=== PATIENT | male | born 1950 | race Caucasian/White ===

== ENCOUNTER 2023-02-13 21:01 | Observation (INO) ==
--- NOTE | 2023-02-13 21:31 | Emergency Department Note ---
History of Present Illness General Chief complaint: Stroke/CVA Symptoms Stated complaint: MEMORY LOSS, CONFUSION Time Seen by Provider: 02/13/23 21:14 Source: patient and family (Daughter and at bedside) History of Present Illness Provider complaint: Confusion 73-year-old male presents to the emergency department for confusion and strokelike symptoms. reports that acutely at 1930 tonight the patient became very confused. She states he did not know where he was and kept repeating the same question. She states he did not remember what he ate or what he did earlier in the day. No difficulty walking. No changes in his voice according to the . reports that the patient has a history of transient global amnesia 7 years ago and presented in similar manner. Home Medications Medication Instructions Recorded Confirmed Type lisinopril 5 mg tablet 5 mg PO DAILY 07/19/18 02/13/23 History metoprolol succinate 25 mg 25 mg PO DAILY 07/19/18 02/13/23 History tablet,extended release 24 hr (Toprol XL) rosuvastatin 20 mg tablet 10 mg PO DAILY 02/13/23 02/13/23 History Allergies Allergy/AdvReac Type Severity Reaction Status Date / Time No Known Allergies Allergy Unknown ` Unverified 02/13/23 22:13 Past Med/Surg History Medical History (Updated 02/13/23 @ 23:37 by Alberto Espinoza MD) Arthritis of left hip Stroke HTN (hypertension) Surgical History [place] teeth extracted Family History Other Family history non-contributory Social History Smoking Status: Never smoker Preferred Language: Mohawk marital status: Current Living Situation: Spouse current occupational status: retired Feels Safe at Home: Yes Physical Exam Vital Signs Vital Signs - 24 hr 02/13/23 21:05 02/13/23 21:24 02/13/23 21:24 Temperature 36.5 C Temperature Source Temporal Artery Scan Pulse Rate 115 H 108 H 112 H Pulse Rate from SpO2 Sensor Respiratory Rate 18 21 Respiratory Depth Blood Pressure 191/105 H 173/122 H Blood Pressure Mean 133 139 Pulse Oximetry 97 Oxygen Delivery Method Room Air Sepsis Recent Fever Within 48 Hours No Sepsis New/Unexplained Change in Mental Status N/A Sepsis Action Taken by Nursing No Action Required 02/13/23 21:30 02/13/23 21:37 02/13/23 21:38 Temperature Temperature Source Pulse Rate 115 H Pulse Rate from SpO2 Sensor 115 H Respiratory Rate 17 Respiratory Depth Normal Blood Pressure 166/112 H 166/112 H Blood Pressure Mean 130 126 Pulse Oximetry 98 Oxygen Delivery Method Sepsis Recent Fever Within 48 Hours Sepsis New/Unexplained Change in Mental Status Sepsis Action Taken by Nursing 02/13/23 21:38 02/13/23 21:40 02/13/23 22:00 Temperature Temperature Source Pulse Rate 114 H 117 H 119 H Pulse Rate from SpO2 Sensor 114 H 117 H Respiratory Rate 15 17 36 H Respiratory Depth Blood Pressure 181/120 H 199/121 H Blood Pressure Mean 140 147 Pulse Oximetry 98 99 Oxygen Delivery Method Sepsis Recent Fever Within 48 Hours Sepsis New/Unexplained Change in Mental Status Sepsis Action Taken by Nursing 02/13/23 23:10 Temperature Temperature Source Pulse Rate 109 H Pulse Rate from SpO2 Sensor 109 H Respiratory Rate 14 Respiratory Depth Blood Pressure 178/117 H Blood Pressure Mean 137 Pulse Oximetry 96 Oxygen Delivery Method Room Air Sepsis Recent Fever Within 48 Hours Sepsis New/Unexplained Change in Mental Status Sepsis Action Taken by Nursing Physical Exam HENT: Exam performed. -Head: Normocephalic and atraumatic. -Right Ear: External ear normal. No mastoid erythema -Left Ear: External ear normal. No mastoid erythema -Mouth/Throat: The oropharynx is clear and moist. No trismus in the jaw. No dental abscesses or uvula swelling. No oropharyngeal exudate or tonsillar abscesses. EYES: Conjunctivae and EOM are normal. Pupils are equal, round, and reactive to light. Right eye exhibits no discharge. Left eye exhibits no discharge. No scleral icterus. Funduscopic exam showed no AV nicking or papilledema bilaterally. NECK: Normal range of motion. Neck supple. No JVD present. No spinous process tenderness present. No rigidity. No tracheal deviation and normal range of motion present. CV: Normal rate, regular rhythm, normal heart sounds and intact distal pulses. There is no peripheral edema. Palpable radial pulses bue. PULM/CHEST: Effort normal and breath sounds normal. No respiratory distress. No stridor. She has no wheezes. She has no rales. MUSC/SKEL: Normal range of motion. There is no peripheral edema, tenderness or deformity. NEURO: NIHSS 2 (9:1, 10:1) Course Course 2113: The patient was evaluated in room A1. A complete history and physical exam was performed Code stroke was called from triage and patient taken to CT. 2134: CT of the head viewed by me shows no ICH patient was taken back to CT for CT angio as part of stroke protocol as they were not placed from the triage order set. 2144: Spoke with Dr. Erasmo Lind teleneurology will evaluate the patient. 2149: Formal CT of the head negative as well as CT angios of the head and neck negative. Dr. Zimmerman aware. 2254: Spoke with Dr. Erasmo Lind telestroke. She recommends no TNKase. She states that the patient's symptoms could be due to transient global amnesia versus seizure versus hypertensive encephalopathy. She recommends aspirin 81 mg daily, MRI of the brain, EEG, she recommends no seizure medications be given tonight. She recommends gradually lowering the patient's blood pressure to a systolic blood pressure in the 160s. Labetalol 10 mg ordered for the patient. [facility] Status post labetalol 10 mg IV push patient's blood pressure is 162/104. Administered Medications Discontinued Medications Aspirin (Aspirin Chew 324 Mg) 81 mg PO NOW STA Stop: 02/13/23 23:01 Last Admin: 02/13/23 23:11 Dose: 81 mg Documented By: VIMAL Ioversol (Optiray 320 125ml) 118 ml IV ONCE ONE Stop: 02/13/23 21:33 Last Admin: 02/13/23 21:32 Dose: 118 ml Documented By: KARYN Labetalol HCl (Labetalol Hcl Iv 5 Mg/Ml 20ml) 10 mg IV NOW STA Stop: 02/13/23 23:01 Last Admin: 02/13/23 23:10 Dose: 10 mg Documented By: VIMAL Co-signed By: MICHELLE Critical Care Time Critical Care Time: Yes Total Critical Care Time: 36 I have personally spent greater than 36 minutes of critical care time in the direct management of this patient. This includes bedside care, interpretation of diagnostic studies, and testing, discussion with consultants, patient, and family members, and other required patient management activities. This 36 minutes is in excess of all separately billable procedures. Medical Decision Making Laboratory Data Attestation: I reviewed the patient's lab results. 02/13/23 21:22 02/13/23 21:22 Lab Results 02/13/23 02/13/23 02/13/23 Range/Units 21:22 21:23 21:26 WBC 5.09 (4.8-10.8) K/ul RBC 5.09 (4.70-6.10) M/uL Hgb 15.1 (14.0-18.0) g/dl POC Hgb 14.6 (14.0-18.0) g/dl Hct 43.8 (42.0-52.0) % POC Hct 43 (42-52) % MCV 86.1 (80.0-100.0) fL MCH 29.7 (25.0-34.0) pg MCHC 34.5 (32.0-36.0) g/dL RDW Std Deviation 36.2 L (36.4-46.3) fL RDW Coeff of Antonella 11.6 (11.5-14.5) % Plt Count 223 (130-400) K/uL MPV 9.0 L (9.4-12.4) fL PT 10.3 (9.0-12.0) Seconds INR 0.9 (0.9-1.1) APTT 25 (21-31) Seconds PTT Ratio 0.9 POC Sodium 142 (135-144) mmol/L Sodium 139 (136-145) mmol/L POC Potassium 3.5 (3.3-5.0) mmol/L Potassium 3.5 (3.5-5.1) mmol/L POC Chloride 102 (101-112) mmol/L Chloride 104 (98-107) mmol/L Carbon Dioxide 29 (21-32) mmol/L POC Total CO2 26 (24-31) mmol/L Anion Gap 6 (3-11) POC Anion Gap 20.0 (16-25) mmol/L POC BUN 14 (7-18) mg/dl BUN 15 (6-23) mg/dl Creatinine 0.93 (0.6-1.4) mg/dl POC Creatinine 1.0 (0.6-1.3) mg/dl Est Cr Clr Drug Dosing 68.1 ml/min Est GFR ( Amer) 95.4 ml/min Est GFR (Non-Af Amer) 82.3 ml/min BUN/Creatinine Ratio 16.1 (10-20) Glucose 140 H (70-99(Fasting)) mg/dl POC Glucose 127 H (70-99) mg/dl POC Glucose (other) 144 H (70-99) mg/dl Calcium 9.4 (8.6-10.3) mg/dl POC Ioniz Calcium Jere 1.08 L (1.12-1.32) mmol/l Magnesium 2.0 (1.7-2.4) mg/dl Total Bilirubin 0.3 (0.2-1.0) mg/dl AST 23 (13-39) U/L ALT 22 (7-52) U/L Alkaline Phosphatase 78 (34-104) U/L Total Protein 8.0 (6.0-8.3) gm/dl Albumin 4.4 (3.4-5.0) gm/dl Globulin 3.6 (2.5-4.0) gm/dl Albumin/Globulin Ratio 1.2 (0.9-2) Urine Color Urine Appearance (Clear) Urine pH (4.5-7.5) Ur Specific [place] (1.000-1.030) Urine Protein (Negative) Urine Glucose (UA) (Negative) Urine Ketones (Negative) Urine Blood (Negative) Urine Nitrite (Negative) Urine Bilirubin (Negative) Urine Urobilinogen (Negative) Ur Leukocyte Esterase (Negative) Ethyl Alcohol mg/dL < 10.0 (<10.0) mg/dl 02/13/23 Range/Units 22:12 WBC (4.8-10.8) K/ul RBC (4.70-6.10) M/uL Hgb (14.0-18.0) g/dl POC Hgb (14.0-18.0) g/dl Hct (42.0-52.0) % POC Hct (42-52) % MCV (80.0-100.0) fL MCH (25.0-34.0) pg MCHC (32.0-36.0) g/dL RDW Std Deviation (36.4-46.3) fL RDW Coeff of Antonella (11.5-14.5) % Plt Count (130-400) K/uL MPV (9.4-12.4) fL PT (9.0-12.0) Seconds INR (0.9-1.1) APTT (21-31) Seconds PTT Ratio POC Sodium (135-144) mmol/L Sodium (136-145) mmol/L POC Potassium (3.3-5.0) mmol/L Potassium (3.5-5.1) mmol/L POC Chloride (101-112) mmol/L Chloride (98-107) mmol/L Carbon Dioxide (21-32) mmol/L POC Total CO2 (24-31) mmol/L Anion Gap (3-11) POC Anion Gap (16-25) mmol/L POC BUN (7-18) mg/dl BUN (6-23) mg/dl Creatinine (0.6-1.4) mg/dl POC Creatinine (0.6-1.3) mg/dl Est Cr Clr Drug Dosing ml/min Est GFR ( Amer) ml/min Est GFR (Non-Af Amer) ml/min BUN/Creatinine Ratio (10-20) Glucose (70-99(Fasting)) mg/dl POC Glucose (70-99) mg/dl POC Glucose (other) (70-99) mg/dl Calcium (8.6-10.3) mg/dl POC Ioniz Calcium Jere (1.12-1.32) mmol/l Magnesium (1.7-2.4) mg/dl Total Bilirubin (0.2-1.0) mg/dl AST (13-39) U/L ALT (7-52) U/L Alkaline Phosphatase (34-104) U/L Total Protein (6.0-8.3) gm/dl Albumin (3.4-5.0) gm/dl Globulin (2.5-4.0) gm/dl Albumin/Globulin Ratio (0.9-2) Urine Color Yellow Urine Appearance Clear (Clear) Urine pH 7.0 (4.5-7.5) Ur Specific [place] 1.010 (1.000-1.030) Urine Protein Negative (Negative) Urine Glucose (UA) Negative (Negative) Urine Ketones Negative (Negative) Urine Blood Negative (Negative) Urine Nitrite Negative (Negative) Urine Bilirubin Negative (Negative) Urine Urobilinogen Negative (Negative) Ur Leukocyte Esterase Negative (Negative) Ethyl Alcohol mg/dL (<10.0) mg/dl Imaging Data My Impression: CT head no ICH Radiologist's Impression: Head CT 02/13/23 21:11 CR Exam(s): CT HEAD Without Contrast EXAM: CT Head Without Intravenous Contrast CLINICAL HISTORY: Reason for exam: Neuro deficit, acute, stroke suspected. TECHNIQUE: Axial computed tomography images of the head/brain without intravenous contrast. CTDI is 37.22 mGy and DLP is 547.75 mGy-cm. Automated exposure control was utilized for the study. A dose lowering technique was utilized adhering to the principles of ALARA. COMPARISON: 07/19/2018. FINDINGS: Brain: No acute stroke. No hemorrhage. No abnormal extra-axial fluid collection. No significant white matter disease. Ventricles: No hydrocephalus. No midline shift. Bones/joints: Unremarkable. No acute fracture. Soft tissues: Unremarkable. Sinuses: Unremarkable as visualized. No acute sinusitis. IMPRESSION: No acute abnormality. Communications: Call Doctor Stroke Electronically signed by: Keaton Alarcon M.D. 02/13/23 21:35 PM Head CTA 02/13/23 21:15 CR Exam(s): CTA HEAD With Contrast IV Amt: 118ML OPTIRAY 320 EXAM: CT Angiography Head With Intravenous Contrast CLINICAL HISTORY: Reason for exam: stroke alert. TECHNIQUE: Axial computed tomographic angiography images of the head with intravenous contrast. CTDI is 31 mGy and DLP is 468.69 mGy-cm. Automated exposure control was utilized for the study. A dose lowering technique was utilized adhering to the principles of ALARA. MIP reconstructed images were created and reviewed. CONTRAST: Patient received 118ML OPTIRAY 320 of IV contrast COMPARISON: CT head without contrast, 02/13/23 FINDINGS: Right internal carotid artery: No acute findings. Intracranial segment is patent with no significant stenosis. No aneurysm. Right anterior cerebral artery: Unremarkable. No occlusion or significant stenosis. No aneurysm. Right middle cerebral artery: Unremarkable. No occlusion or significant stenosis. No aneurysm. Right posterior cerebral artery: Unremarkable. No occlusion or significant stenosis. No aneurysm. Right vertebral artery: Unremarkable as visualized. Left internal carotid artery: No acute findings. Intracranial segment is patent with no significant stenosis. No aneurysm. Left anterior cerebral artery: Unremarkable. No occlusion or significant stenosis. No aneurysm. Left middle cerebral artery: Unremarkable. No occlusion or significant stenosis. No aneurysm. Left posterior cerebral artery: Unremarkable. No occlusion or significant stenosis. No aneurysm. Left vertebral artery: Unremarkable as visualized. Basilar artery: Unremarkable. No occlusion or significant stenosis. No aneurysm. IMPRESSION: Patent intracranial circulation. Communications: Call Doctor Stroke Electronically signed by: Willam Barba M.D. 02/13/23 21:47 PM Neck CTA 02/13/23 21:15 CR Exam(s): CTA NECK With Contrast IV Amt: 118ml optiray 320 EXAM: CT Angiography Neck With Intravenous Contrast CLINICAL HISTORY: Reason for exam: stroke alert. TECHNIQUE: Routine carotid CT angiography protocol was performed with intravenous contrast. NASCET criteria using the distal ICAs for comparison were used for evaluation of stenoses. CTDI is 31 mGy and DLP is 468.69 mGy-cm. Automated exposure control was utilized for the study. A dose lowering technique was utilized adhering to the principles of ALARA. MIP reconstructed images were created and reviewed. CONTRAST: Patient received 118ml optiray 320 of IV contrast COMPARISON: None. FINDINGS: VASCULATURE: Right common carotid artery: Unremarkable. No occlusion or significant stenosis. No dissection. Right internal carotid artery: Unremarkable. Extracranial segment is patent with no occlusion or significant stenosis. No dissection. Right external carotid artery: Unremarkable. No occlusion. Right vertebral artery: Unremarkable. No occlusion or significant stenosis. No dissection. Left common carotid artery: Unremarkable. No occlusion or significant stenosis. No dissection. Left internal carotid artery: Unremarkable. Extracranial segment is patent with no occlusion or significant stenosis. No dissection. Left external carotid artery: Unremarkable. No occlusion. Left vertebral artery: Unremarkable. No occlusion or significant stenosis. No dissection. Aorta: Conventional aortic arch branch anatomy. NECK: Bones/joints: Unremarkable. No acute fracture. Soft tissues: Unremarkable. Thyroid: Subcentimeter thyroid nodules. No follow-up indicated due to small size. Lung apices: Clear lung terrell. CAROTID STENOSIS REFERENCE USING NASCET CRITERIA: % ICA stenosis = (1 - narrowest ICA diameter/diameter of distal cervical ICA) x 100. Mild - <50% stenosis. Moderate - 50-69% stenosis. Severe - 70-94% stenosis. Near occlusion - 95-99% stenosis. Occluded - 100% stenosis. IMPRESSION: No dissection, hemodynamically significant stenosis, or occlusion. Communications: Call Doctor Stroke Electronically signed by: Willam Barba M.D. 02/13/23 21:48 PM ECG Data Attestation: I personally reviewed and interpreted this ECG as follows: Rate (beats per minute): 117 Rhythm: + sinus tachycardia ECG Intervals/blocks: + Normal QRS, + Normal IN and + Normal QT-c ECG ST segments: + Normal ST segments MDM Narrative 2113: The patient was evaluated in room A1. A complete history and physical exam was performed Code stroke was called from triage and patient taken to CT. 2134: CT of the head viewed by me shows no ICH patient was taken back to CT for CT angio as part of stroke protocol as they were not placed from the triage order set. 2144: Spoke with Dr. Erasmo Lind teleneurology will evaluate the patient. 2149: Formal CT of the head negative as well as CT angios of the head and neck negative. Dr. Zimmerman aware. 2255: Spoke with Dr. Erasmo Lind telestroke. She recommends no TNKase. She states that the patient's symptoms could be due to transient global amnesia versus seizure versus hypertensive encephalopathy. She recommends aspirin 81 mg daily, MRI of the brain, EEG, she recommends no seizure medications be given tonight. She recommends gradually lowering the patient's blood pressure to a systolic blood pressure in the 160s. Labetalol 10 mg ordered for the patient. Patient will be admitted to the [facility] hospitalist team. 2335: Status post labetalol 10 mg IV push patient's blood pressure is 162/104. Impression & Plan Stroke-like symptoms, Encephalopathy, hypertensive Discharge Plan Visit Data Chief Complaint: Stroke/CVA Symptoms Stated Complaint: MEMORY LOSS, CONFUSION ED Provider: Alberto Espinoza Discharge Problem: Stroke-like symptoms, Encephalopathy, hypertensive Patient Disposition: Admitted As Inpatient Forms Stand Alone Forms: My [facility] [employer] Prescriptions Prescriptions: No Action lisinopril 5 mg tablet 5 mg PO DAILY metoprolol succinate [Toprol XL] 25 mg tablet extended release 24 hr 25 mg PO DAILY rosuvastatin 20 mg tablet 10 mg PO DAILY Referrals Referrals: Kingsley Kraft DO [Primary Care Provider] -
[2023-02-13] MEDS ORDERED: OPTIRAY 320 125ml IV ONE (21:32)
--- NOTE | 2023-02-13 21:36 | CT Scan Report ---
Exam(s): CT HEAD Without Contrast EXAM: CT Head Without Intravenous Contrast CLINICAL HISTORY: Reason for exam: Neuro deficit, acute, stroke suspected. TECHNIQUE: Axial computed tomography images of the head/brain without intravenous contrast. CTDI is 37.22 mGy and DLP is 547.75 mGy-cm. Automated exposure control was utilized for the study. A dose lowering technique was utilized adhering to the principles of ALARA. COMPARISON: 07/19/2018. FINDINGS: Brain: No acute stroke. No hemorrhage. No abnormal extra-axial fluid collection. No significant white matter disease. Ventricles: No hydrocephalus. No midline shift. Bones/joints: Unremarkable. No acute fracture. Soft tissues: Unremarkable. Sinuses: Unremarkable as visualized. No acute sinusitis. IMPRESSION: No acute abnormality. Communications: Call Doctor Stroke Electronically signed by: Keaton Alarcon M.D. 02/13/23 21:35 PM
[2023-02-13 21:38] LABS: iSTAT Hemoglobin 14.6 g/dl (14.0-18.0); iSTAT Ionized Calcium 1.08 mmol/l (1.12-1.32); iSTAT Potassium 3.5 mmol/L (3.3-5.0)
[2023-02-13 21:43] LABS: INR 0.9 (0.9-1.1); Partial Thromboplastin Ratio 0.9; Partial Thromboplastin Time 25 Seconds (21-31); Prothrombin Time 10.3 Seconds (9.0-12.0)
--- NOTE | 2023-02-13 21:48 | CT Scan Report ---
Exam(s): CTA HEAD With Contrast IV Amt: 118ML OPTIRAY 320 EXAM: CT Angiography Head With Intravenous Contrast CLINICAL HISTORY: Reason for exam: stroke alert. TECHNIQUE: Axial computed tomographic angiography images of the head with intravenous contrast. CTDI is 31 mGy and DLP is 468.69 mGy-cm. Automated exposure control was utilized for the study. A dose lowering technique was utilized adhering to the principles of ALARA. MIP reconstructed images were created and reviewed. CONTRAST: Patient received 118ML OPTIRAY 320 of IV contrast COMPARISON: CT head without contrast, 02/13/23 FINDINGS: Right internal carotid artery: No acute findings. Intracranial segment is patent with no significant stenosis. No aneurysm. Right anterior cerebral artery: Unremarkable. No occlusion or significant stenosis. No aneurysm. Right middle cerebral artery: Unremarkable. No occlusion or significant stenosis. No aneurysm. Right posterior cerebral artery: Unremarkable. No occlusion or significant stenosis. No aneurysm. Right vertebral artery: Unremarkable as visualized. Left internal carotid artery: No acute findings. Intracranial segment is patent with no significant stenosis. No aneurysm. Left anterior cerebral artery: Unremarkable. No occlusion or significant stenosis. No aneurysm. Left middle cerebral artery: Unremarkable. No occlusion or significant stenosis. No aneurysm. Left posterior cerebral artery: Unremarkable. No occlusion or significant stenosis. No aneurysm. Left vertebral artery: Unremarkable as visualized. Basilar artery: Unremarkable. No occlusion or significant stenosis. No aneurysm. IMPRESSION: Patent intracranial circulation. Communications: Call Doctor Stroke Electronically signed by: Willam Barba M.D. 02/13/23 21:47 PM
--- NOTE | 2023-02-13 21:49 | CT Scan Report ---
Exam(s): CTA NECK With Contrast IV Amt: 118ml optiray 320 EXAM: CT Angiography Neck With Intravenous Contrast CLINICAL HISTORY: Reason for exam: stroke alert. TECHNIQUE: Routine carotid CT angiography protocol was performed with intravenous contrast. NASCET criteria using the distal ICAs for comparison were used for evaluation of stenoses. CTDI is 31 mGy and DLP is 468.69 mGy-cm. Automated exposure control was utilized for the study. A dose lowering technique was utilized adhering to the principles of ALARA. MIP reconstructed images were created and reviewed. CONTRAST: Patient received 118ml optiray 320 of IV contrast COMPARISON: None. FINDINGS: VASCULATURE: Right common carotid artery: Unremarkable. No occlusion or significant stenosis. No dissection. Right internal carotid artery: Unremarkable. Extracranial segment is patent with no occlusion or significant stenosis. No dissection. Right external carotid artery: Unremarkable. No occlusion. Right vertebral artery: Unremarkable. No occlusion or significant stenosis. No dissection. Left common carotid artery: Unremarkable. No occlusion or significant stenosis. No dissection. Left internal carotid artery: Unremarkable. Extracranial segment is patent with no occlusion or significant stenosis. No dissection. Left external carotid artery: Unremarkable. No occlusion. Left vertebral artery: Unremarkable. No occlusion or significant stenosis. No dissection. Aorta: Conventional aortic arch branch anatomy. NECK: Bones/joints: Unremarkable. No acute fracture. Soft tissues: Unremarkable. Thyroid: Subcentimeter thyroid nodules. No follow-up indicated due to small size. Lung apices: Clear lung terrell. CAROTID STENOSIS REFERENCE USING NASCET CRITERIA: % ICA stenosis = (1 - narrowest ICA diameter/diameter of distal cervical ICA) x 100. Mild - <50% stenosis. Moderate - 50-69% stenosis. Severe - 70-94% stenosis. Near occlusion - 95-99% stenosis. Occluded - 100% stenosis. IMPRESSION: No dissection, hemodynamically significant stenosis, or occlusion. Communications: Call Doctor Stroke Electronically signed by: Willam Barba M.D. 02/13/23 21:48 PM
[2023-02-13 21:51] LABS: Albumin Globulin Ratio 1.2 (0.9-2); Albumin Level 4.4 gm/dl (3.4-5.0); BUN Creatinine Ratio 16.1 (10-20); Bilirubin,Total 0.3 mg/dl (0.2-1.0); Calcium 9.4 mg/dl (8.6-10.3); Creatinine Clr Calc Pharmacy 68.1 ml/min; Est GFR (African American) 95.4 ml/min; Est GFR (Non-African American) 82.3 ml/min; Globulin 3.6 gm/dl (2.5-4.0); Potassium 3.5 mmol/L (3.5-5.1)
[2023-02-13 22:03] LABS: Hematocrit (blood only) 43.8 % (42.0-52.0); Hemoglobin 15.1 g/dl (14.0-18.0); Mean Corpuscular Hemoglobin 29.7 pg (25.0-34.0); Mean Corpuscular Hgb Conc 34.5 g/dL (32.0-36.0); Mean Corpuscular Volume 86.1 fL (80.0-100.0); Platelet Count 223 K/uL (130-400); RDW Coefficient of Variation 11.6 % (11.5-14.5); RDW Standard Deviation 36.2 fL (36.4-46.3); Red Blood Count 5.09 M/uL (4.70-6.10); White Blood Count 5.09 K/ul (4.8-10.8)
[2023-02-13 22:33] LABS: Appearance Urine Clear (Clear); Bilirubin Urine Negative (Negative); Blood Urine Negative (Negative); Color Urine Yellow; Glucose Urine UA Negative (Negative); Ketones Urine Negative (Negative); Leukocyte Esterase Urine Negative (Negative); Nitrite Urine Negative (Negative); Protein Urine Negative (Negative); Urobilinogen Urine Negative (Negative)
[2023-02-13] MEDS ORDERED: LABETALOL HCL IV 5 MG/ML 20ML IV STA (23:00)
[2023-02-13] MEDS ORDERED: ASPIRIN CHEW 324 MG PO STA (23:00)
[2023-02-13 23:55] LABS: Chol HDL Ratio 3.1 (0-5)
[2023-02-14 00:16] LABS: Thyroid Stimulating Hormone 2.972 uIu/ml (0.300-4.500)
--- NOTE | 2023-02-14 00:40 | History & Physical Report ---
Date of Service February 14, 2023 Assessment & Plan (1) Stroke-like symptoms: Plan: 73-year-old male with past med history significant for hyperlipidemia, hypertension, GERD, chronic bilateral low back pain, presents with strokelike symptoms. Around 7:30 PM patient seemed lost his memory, was asking same questions and was brought in and stroke alert was called. Initial workup with CT head CTA head and neck are unremarkable. And patient currently alert and a wake and oriented. He does not remember coming to the hospital. states 7 years ago he had a similar episode of transient global amnesia at the time it lasted for 24 hours. [place] tele stroke neurology recommended EEG, MRI. Currently resting comfortably and hemodynamic stable. Denies any headache. No blurred visions or double vision. No earache. No runny nose. Having lingering cough. No difficulty swallowing. No chest pain. No shortness of breath. No abdominal pain. Normal bowel movements. Seems micturating a lot today. Denies any burning micturition. Ambulating okay to the bathroom in the ER. Strokelike symptoms Possible transient global amnesia Possible hypertensive encephalopathy CT head, CTA head and neck unremarkable Will do MRI brain, EEG Follow TSH levels. IV thiamine Neurochecks Telemetry monitoring Neuroconsult in a.m. Hypertension Was elevated on presentation Continue home lisinopril and metoprolol succinate IV labetalol as needed Hyperlipidemia On statin Follow lipid profile DVT prophylaxis SCDs for now Disposition Telemetry Full code History of Present Illness Chief Complaint: Strokelike symptoms Primary Care Provider: Kingsley Kraft DO 73-year-old male with past med history significant for hyperlipidemia, hypertension, GERD, chronic bilateral low back pain, presents with strokelike symptoms. Around 7:30 PM patient seemed lost his memory, was asking same questions and was brought in and stroke alert was called. Initial workup with CT head CTA head and neck are unremarkable. And patient currently alert and awake and oriented. He does not remember coming to the hospital. states 7 years ago he had a similar episode of transient global amnesia at the time it lasted for 24 hours. [place] tele stroke neurology recommended EEG, MRI. Currently resting comfortably and hemodynamic stable. Denies any headache. No blurred visions or double vision. No earache. No runny nose. Having lingering cough. No difficulty swallowing. No chest pain. No shortness of breath. No abdominal pain. Normal bowel movements. Seems micturating a lot today. Denies any burning micturition. Ambulating okay to the bathroom in the ER. Past medical history. As mentioned above Past surgical history. [place] tooth removal. Social history. . No smoking. Alcohol 2 beers nightly. No drug use. Family history. Father had prostate cancer. Heart disorder. Hypertension. Mother had diabetes. Hypertension. Brother had hypertension. Brother had CAD s/p stenting Allergies Allergy/AdvReac Type Severity Reaction Status Date / Time No Known Allergies Allergy Unknown ` Unverified 02/13/23 22:13 Home Medications Medication Instructions Recorded Confirmed Type lisinopril 5 mg tablet 5 mg PO DAILY 07/19/18 02/13/23 History metoprolol succinate 25 mg 25 mg PO DAILY 07/19/18 02/13/23 History tablet,extended release 24 hr (Toprol XL) rosuvastatin 20 mg tablet 10 mg PO DAILY 02/13/23 02/13/23 History Past Med/Surg History Medical History (Updated 02/13/23 @ 23:37 by Alberto Espinoza MD) Arthritis of left hip Stroke HTN (hypertension) Surgical History [place] teeth extracted Family History Other Family history non-contributory Social History Smoking Status: Never smoker Hx Alcohol Use: Yes Hx Substance Use: No Preferred Language: [place] Communication Ability: Effective 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 ENT- oropharynx clear Neck- supple, no JVD. Lungs- clear to auscultation no wheezing or crackles. Heart- regular rhythm; no murmur, no gallop. Abdomen- normal bowel sounds, soft, nontender, no distension. Extremities- no pretibial edema, no erythema seen. Neuro- alert, oriented x 3; PERRL, EOMI; no facial palsy; no dysarthria; motor 5/5 bilaterally;coordination of movements normal, no pronator drift,sensations intact, position sense intact. Skin- warm & dry Results & Data Results & Data Vital Signs (Past 12 Hours) Vital Signs Temp Pulse Pulse Resp BP BP Pulse Ox 02/14/23 00:17 90 16 145/86 H 97 02/13/23 23:35 97 02/13/23 23:35 02/13/23 23:31 92 H 162/104 H 02/13/23 23:10 109 H 14 178/117 H 96 02/13/23 22:00 119 H 36 H 199/121 H 02/13/23 21:40 117 H 17 181/120 H 99 02/13/23 21:38 114 H 15 98 02/13/23 21:38 166/112 H 02/13/23 21:37 115 H 17 166/112 H 98 02/13/23 21:24 112 H 21 173/122 H 02/13/23 21:24 108 H 02/13/23 21:05 36.5 C 115 H 18 191/105 H 97 O2 Del Method 02/14/23 00:17 02/13/23 23:35 Room Air 02/13/23 23:35 Room Air 02/13/23 23:31 02/13/23 23:10 Room Air 02/13/23 22:00 02/13/23 21:40 02/13/23 21:38 02/13/23 21:38 02/13/23 21:37 02/13/23 21:24 02/13/23 21:24 02/13/23 21:05 Room Air Diagnostic Findings Laboratory Results WBC 5.09 K/ul (4.8-10.8) 02/13/23 21: RBC 5.09 M/uL (4.70-6.10) 02/13/23 21: Hgb 15.1 g/dl (14.0-18.0) 02/13/23 21: POC Hgb 14.6 g/dl (14.0-18.0) 02/13/23 21: Hct 43.8 % (42.0-52.0) 02/13/23 21:22 POC Hct 43 % (42-52) 02/13/23 21: MCV 86.1 fL (80.0-100.0) 02/13/23 21:22 MCH 29.7 pg (25.0-34.0) 02/13/23 21:22 MCHC 34.5 g/dL (32.0-36.0) 02/13/23 21:22 RDW Std Deviation 36.2 fL (36.4-46.3) L 02/13/23 21: RDW Coeff of Antonella 11.6 % (11.5-14.5) 02/13/23 21:22 Plt Count 223 K/uL (130-400) 02/13/23 21:22 MPV 9.0 fL (9.4-12.4) L 02/13/23 21:22 PT 10.3 Seconds (9.0-12.0) 02/13/23 21:22 INR 0.9 (0.9-1.1) 02/13/23 21: APTT 25 Seconds (21-31) 02/13/23 21:22 PTT Ratio 0.9 02/13/23 21:22 POC Sodium 142 mmol/L (135-144) 02/13/23 21:26 Sodium 139 mmol/L (136-145) 02/13/23 21:22 POC Potassium 3.5 mmol/L (3.3-5.0) 02/13/23 21:26 Potassium 3.5 mmol/L (3.5-5.1) 02/13/23 21:22 POC Chloride 102 mmol/L (101-112) 02/13/23 21:26 Chloride 104 mmol/L (98-107) 02/13/23 21:22 Carbon Dioxide 29 mmol/L (21-32) 02/13/23 21:22 POC Total CO2 26 mmol/L (24-31) 02/13/23 21:26 Anion Gap 6 (3-11) 02/13/23 21:22 POC Anion Gap 20.0 mmol/L (16-25) 02/13/23 21:26 POC BUN 14 mg/dl (7-18) 02/13/23 21:26 BUN 15 mg/dl (6-23) 02/13/23 21:22 Creatinine 0.93 mg/dl (0.6-1.4) 02/13/23 21:22 POC Creatinine 1.0 mg/dl (0.6-1.3) 02/13/23 21:26 Est Cr Clr Drug Dosing 68.1 ml/min 02/13/23 21:22 Est GFR ( Amer) 95.4 ml/min 02/13/23 21:22 Est GFR (Non-Af Amer) 82.3 ml/min 02/13/23 21:22 BUN/Creatinine Ratio 16.1 (10-20) 02/13/23 21:22 Glucose 140 mg/dl (70-99(Fasting)) H 02/13/23 21:22 POC Glucose 127 mg/dl (70-99) H 02/13/23 21:23 POC Glucose (other) 144 mg/dl (70-99) H 02/13/23 21:26 Calcium 9.4 mg/dl (8.6-10.3) 02/13/23 21:22 POC Ioniz Calcium Jere 1.08 mmol/l (1.12-1.32) L 02/13/23 21:26 Magnesium 2.0 mg/dl (1.7-2.4) 02/13/23 21:22 Total Bilirubin 0.3 mg/dl (0.2-1.0) 02/13/23 21:22 AST 23 U/L (13-39) 02/13/23 21:22 ALT 22 U/L (7-52) 02/13/23 21:22 Alkaline Phosphatase 78 U/L (34-104) 02/13/23 21:22 Total Protein 8.0 gm/dl (6.0-8.3) 02/13/23 21:22 Albumin 4.4 gm/dl (3.4-5.0) 02/13/23 21:22 Globulin 3.6 gm/dl (2.5-4.0) 02/13/23 21:22 Albumin/Globulin Ratio 1.2 (0.9-2) 02/13/23 21:22 Triglycerides 160 mg/dl (0-150) H 02/13/23 21:22 Cholesterol 145 mg/dl (0-200) 02/13/23 21:22 LDL Cholesterol, Calc 66 mg/dl 02/13/23 21:22 VLDL Cholesterol, Calc 32 mg/dl (0-30) H 02/13/23 21:22 HDL Cholesterol 47 mg/dl 02/13/23 21:22 Cholesterol/HDL Ratio 3.1 (0-5) 02/13/23 21:22 TSH 2.972 uIu/ml (0.300-4.500) 02/13/23 21:22 Urine Color Yellow 02/13/23 22:12 Urine Appearance Clear (Clear) 02/13/23 22:12 Urine pH 7.0 (4.5-7.5) 02/13/23 22:12 Ur Specific [place] 1.010 (1.000-1.030) 02/13/23 22:12 Urine Protein Negative (Negative) 02/13/23 22:12 Urine Glucose (UA) Negative (Negative) 02/13/23 22:12 Urine Ketones Negative (Negative) 02/13/23 22:12 Urine Blood Negative (Negative) 02/13/23 22:12 Urine Nitrite Negative (Negative) 02/13/23 22:12 Urine Bilirubin Negative (Negative) 02/13/23 22:12 Urine Urobilinogen Negative (Negative) 02/13/23 22:12 Ur Leukocyte Esterase Negative (Negative) 02/13/23 22:12 Ethyl Alcohol mg/dL < 10.0 mg/dl (<10.0) 02/13/23 21:[address] 02/13/23 21:11 CR Exam(s): CT HEAD Without Contrast EXAM: CT Head Without Intravenous Contrast CLINICAL HISTORY: Reason for exam: Neuro deficit, acute, stroke suspected. TECHNIQUE: Axial computed tomography images of the head/brain without intravenous contrast. CTDI is 37.22 mGy and DLP is 547.75 mGy-cm. Automated exposure control was utilized for the study. A dose lowering technique was utilized adhering to the principles of ALARA. COMPARISON: 07/19/2018. FINDINGS: Brain: No acute stroke. No hemorrhage. No abnormal extra-axial fluid collection. No significant white matter disease. Ventricles: No hydrocephalus. No midline shift. Bones/joints: Unremarkable. No acute fracture. Soft tissues: Unremarkable. Sinuses: Unremarkable as visualized. No acute sinusitis. IMPRESSION: No acute abnormality. Communications: Call Doctor Stroke Electronically signed by: Keaton Alarcon M.D. 02/13/23 21:35 PM Head CTA 02/13/23 21:15 CR Exam(s): CTA HEAD With Contrast IV Amt: 118ML OPTIRAY 320 EXAM: CT Angiography Head With Intravenous Contrast CLINICAL HISTORY: Reason for exam: stroke alert. TECHNIQUE: Axial computed tomographic angiography images of the head with intravenous contrast. CTDI is 31 mGy and DLP is 468.69 mGy-cm. Automated exposure control was utilized for the study. A dose lowering technique was utilized adhering to the principles of ALARA. MIP reconstructed images were created and reviewed. CONTRAST: Patient received 118ML OPTIRAY 320 of IV contrast COMPARISON: CT head without contrast, 02/13/23 FINDINGS: Right internal carotid artery: No acute findings. Intracranial segment is patent with no significant stenosis. No aneurysm. Right anterior cerebral artery: Unremarkable. No occlusion or significant stenosis. No aneurysm. Right middle cerebral artery: Unremarkable. No occlusion or significant stenosis. No aneurysm. Right posterior cerebral artery: Unremarkable. No occlusion or significant stenosis. No aneurysm. Right vertebral artery: Unremarkable as visualized. Left internal carotid artery: No acute findings. Intracranial segment is patent with no significant stenosis. No aneurysm. Left anterior cerebral artery: Unremarkable. No occlusion or significant stenosis. No aneurysm. Left middle cerebral artery: Unremarkable. No occlusion or significant stenosis. No aneurysm. Left posterior cerebral artery: Unremarkable. No occlusion or significant stenosis. No aneurysm. Left vertebral artery: Unremarkable as visualized. Basilar artery: Unremarkable. No occlusion or significant stenosis. No aneurysm. IMPRESSION: Patent intracranial circulation. Communications: Call Doctor Stroke Electronically signed by: Willam Barba M.D. 02/13/23 21:47 PM Neck CTA 02/13/23 21:15 CR Exam(s): CTA NECK With Contrast IV Amt: 118ml optiray 320 EXAM: CT Angiography Neck With Intravenous Contrast CLINICAL HISTORY: Reason for exam: stroke alert. TECHNIQUE: Routine carotid CT angiography protocol was performed with intravenous contrast. NASCET criteria using the distal ICAs for comparison were used for evaluation of stenoses. CTDI is 31 mGy and DLP is 468.69 mGy-cm. Automated exposure control was utilized for the study. A dose lowering technique was utilized adhering to the principles of ALARA. MIP reconstructed images were created and reviewed. CONTRAST: Patient received 118ml optiray 320 of IV contrast COMPARISON: None. FINDINGS: VASCULATURE: Right common carotid artery: Unremarkable. No occlusion or significant stenosis. No dissection. Right internal carotid artery: Unremarkable. Extracranial segment is patent with no occlusion or significant stenosis. No dissection. Right external carotid artery: Unremarkable. No occlusion. Right vertebral artery: Unremarkable. No occlusion or significant stenosis. No dissection. Left common carotid artery: Unremarkable. No occlusion or significant stenosis. No dissection. Left internal carotid artery: Unremarkable. Extracranial segment is patent with no occlusion or significant stenosis. No dissection. Left external carotid artery: Unremarkable. No occlusion. Left vertebral artery: Unremarkable. No occlusion or significant stenosis. No dissection. Aorta: Conventional aortic arch branch anatomy. NECK: Bones/joints: Unremarkable. No acute fracture. Soft tissues: Unremarkable. Thyroid: Subcentimeter thyroid nodules. No follow-up indicated due to small size. Lung apices: Clear lung terrell. CAROTID STENOSIS REFERENCE USING NASCET CRITERIA: % ICA stenosis = (1 - narrowest ICA diameter/diameter of distal cervical ICA) x 100. Mild - <50% stenosis. Moderate - 50-69% stenosis. Severe - 70-94% stenosis. Near occlusion - 95-99% stenosis. Occluded - 100% stenosis. IMPRESSION: No dissection, hemodynamically significant stenosis, or occlusion. Communications: Call Doctor Stroke Electronically signed by: Willam Barba M.D. 02/13/23 21:48 PM ECG Additional Comments: EEG. Sinus tachycardia rate of 117. No acute ST changes seen. Code Status & VTE Plan VTE Prophylaxis Plan VTE Prophylaxis will be ordered: Yes
[2023-02-14] MEDS ORDERED: LABETALOL HCL IV 5 MG/ML 20ML IV PRN (02:12)
[2023-02-14] MEDS ORDERED: SODIUM CHLORIDE 0.9% 1,000 ML IV SCH (02:12)
[2023-02-14] MEDS ORDERED: NITROGLYCERIN SL 0.4 MG/TAB TAB SL PRN (02:12)
[2023-02-14] MEDS ORDERED: PHARMACIST DISCHARGE MED REC CONSULT PRN (02:12)
[2023-02-14] MEDS ORDERED: ACETAMINOPHEN 325 MG TAB PO PRN (02:12)
[2023-02-14] MEDS ORDERED: THIAMINE HCL 500 MG in SODIUM CHLORIDE 0.9% 50 ML IV STA (02:18)
[2023-02-14] MEDS ORDERED: GADOBUTROL 65ML VIAL IV ONE (04:42)
[2023-02-14 05:58] LABS: Basophils # (auto) 0.02 K/uL (0.00-0.20); Basophils % (auto) 0.3 %; Eosinophils # (auto) 0.02 K/uL (0.00-0.50); Eosinophils % (auto) 0.3 %; Hematocrit (blood only) 41.4 % (42.0-52.0); Hemoglobin 14.2 g/dl (14.0-18.0); Immature Granulocytes # (auto) 0.01 K/uL (0.01-0.20); Immature Granulocytes % (auto) 0.2 %; Lymphocytes % (auto) 10.6 %; Mean Corpuscular Hemoglobin 29.6 pg (25.0-34.0); Mean Corpuscular Hgb Conc 34.3 g/dL (32.0-36.0); Mean Corpuscular Volume 86.3 fL (80.0-100.0); Mean Platelet Volume 8.7 fL (9.4-12.4); Monocytes % (auto) 6.1 %; Neutrophils # (auto) 5.43 K/uL (1.40-6.50); Neutrophils % (auto) 82.5 %; Platelet Count 215 K/uL (130-400); RDW Coefficient of Variation 11.8 % (11.5-14.5); RDW Standard Deviation 37.1 fL (36.4-46.3); White Blood Count 6.58 K/ul (4.8-10.8)
[2023-02-14 06:14] LABS: BUN Creatinine Ratio 14.8 (10-20); Calcium 9.1 mg/dl (8.6-10.3); Chol HDL Ratio 2.6 (0-5); Creatinine Clr Calc Pharmacy 78.2 ml/min; Est GFR (African American) 103.6 ml/min; Est GFR (Non-African American) 89.4 ml/min; Potassium 4.5 mmol/L (3.5-5.1)
[2023-02-14 06:28] LABS: Thyroid Stimulating Hormone 1.482 uIu/ml (0.300-4.500)
--- NOTE | 2023-02-14 07:04 | Magnetic Resonance Report ---
MR brain wo/w con HISTORY: 73 years-old Male stroke like symptoms acute strokelike symptoms COMPARISON: Head CT February 13, 2023, brain MRI 05/15/2015 TECHNIQUE: Multiplanar multisequence MRI of the brain was obtained both with and without the use of I V contrast. FINDINGS: No restricted diffusion to suggest acute or subacute infarct. Midline structures are unremarkable. Pa rtially empty sella. Degenerative changes of the imaged cervical spine. There is no acute intracrania l hemorrhage, midline shift, abnormal extra-axial collection, hydrocephalus or intra-axial mass. No p athologic blooming artifact on the T2*series. Involutional changes with a few punctate foci of T2/FLAIR prolongation, likely of no clinical signifi cance. The cerebral venous sinuses and major arterial flow voids appear patent. Skull, orbits and sof t tissues are unremarkable. Right greater than left mastoid effusions. Mild mucosal thickening of the left maxillary sinus. No abnormal enhancement. IMPRESSION: 1. No acute intracranial abnormality. 2. No acute or subacute infarct. 3. No abnormal enhancement. ACT 112: Negative or not required by law. The above report was generated using voice recognition software. It may contain grammatical, syntax o r spelling errors. Electronically signed by: Aly Phelan M.D. 02/14/2023 7:02 AM
--- NOTE | 2023-02-14 07:22 | XRay Report ---
XR chest 1V portable HISTORY: 73 years-old Male stroke alert acute strokelike symptoms COMPARISON: Chest CT 07/19/2018 TECHNIQUE: AP view of the chest FINDINGS: Cardiomediastinal and hilar silhouettes are unchanged. Mild chronic interstitial coarsening with mild bibasilar atelectasis. No pneumothorax, pleural effusion or overt pulmonary edema. Degenerative singh ges of the shoulders and spine. IMPRESSION: No acute process. ACT 112: Negative or not required by law. The above report was generated using voice recognition software. It may contain grammatical, syntax o r spelling errors. Electronically signed by: Aly Phelan M.D. 02/14/2023 7:21 AM
[2023-02-14 07:40] LABS: Estimated Average Glucose 111 mg/dl; Hemoglobin A1C 5.5 % (4.5-5.6)
[2023-02-14] MEDS ORDERED: lisinopril 5 MG TAB PO SCH (09:00)
[2023-02-14] MEDS ORDERED: ASPIRIN 81 MG ECTAB PO SCH (09:00)
[2023-02-14] MEDS ORDERED: METOPROLOL SUCC 25MG EXT REL TAB PO SCH (09:00)
[2023-02-14] MEDS ORDERED: ROSUVASTATIN CALCIUM 10 MG TAB PO SCH (09:00)
--- NOTE | 2023-02-14 11:12 | Neurology Consultation ---
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 While rare, recurrent TGA does occur. Alternatively, a hypertensive etiology is reasonable to consider. MRI brain is unremarkable. No loss of consciousness to suggest seizure though EEG was recommended by telestroke yesterday. Would not otherwise change his medication based on this event beyond working with his PCP outpatient to ensure BP control. -- Await EEG -- PCP follow-up, neurology follow-up in 4-6 weeks -- No change in medications -- Can be discharged from our perspective after EEG Telehealth Consultation Telehealth Information Telehealth Information: I performed this visit using a real-time telehealth connection between my location and the patients location ([facility]). After connecting through interactive tele-video, patient was identified by name and date of and/or wristband check.Patient (or authorized healthcare policy services representative) was informed that this was a telemedicine visit and it was being conducted confidentially over secure lines. My office door was closed and no one else was present in the room with me.Patient (or authorized healthcare policy services representative) provided consent to proceed with the visit, expressed an understanding of privacy and security of the telemedicine visit, and gave pe rmission to have a hospital policy services representative in the room in order to assist with the visit and to conduct portions of the visit, as needed. I informed the patient (or authorized healthcare policy services representative) that I reviewed their record and presented the opportunity for them to ask any questions regarding the visit today. The patient agreed to participate. History of Present Illness Reason for Consultation: Confusion Requesting Physician: Dr. Alves Attending Physician: Sarah Alves MD History of Present Illness Med Cueto is a 73 yo M presenting with confusion and repetitive questioning. He reportedly has a history of TGA with the same presentation 7 years earlier but has been doing well since then. Currently he is back to baseline and denies any further confusion, though family reports he was slightly confused about therapy services this morning. Yesterday, he does remember walking his mother over to his house, he went in the bathtub and then he lost h is memory. He does remember coming to the hospital. Family reports this episode was less severe and was shorter than the episode 7 years ago. He takes his BP regularly at home and even has calibrated his cuff with his PCP and has not had high blood pressure at home. He also reports a R sided headache this morning but did not sleep last night. Allergies Allergy/AdvReac Type Severity Reaction Status Date / Time No Known Allergies Allergy Unknown ` Unverified 02/13/23 22:13 Home Medications Medication Instructions Recorded Confirmed Type lisinopril 5 mg tablet 5 mg PO DAILY 07/19/18 02/13/23 History metoprolol succinate 25 mg 25 mg PO DAILY 07/19/18 02/13/23 History tablet,extended release 24 hr (Toprol XL) rosuvastatin 20 mg tablet 10 mg PO DAILY 02/13/23 02/13/23 History Patient History Medical History (Updated 02/13/23 @ 23:37 by Alberto Espinoza MD) Arthritis of left hip Stroke HTN (hypertension) Surgical History [place] teeth extracted Family History Other Family history non-contributory Social History Smoking Status: Never smoker Hx Alcohol Use: Yes Hx Substance Use: No Preferred Language: Mosotho Communication Ability: Effective Marketing Ambassador Required: No Beliefs That Will Affect Care: None marital status: Current Living Situation: Spouse current occupational status: retired Feels Safe at Home: Yes Assistive Devices: None Review of Systems +memory loss (resolved) Physical Exam Neurological Examination: Mental Status: Awake and alert. Oriented to person, place, and time. Fluent. Comprehension intact. Affect appropriate. Cranial Nerves: II: Reads NIHSS cards, pupils 3/3 to 2/2, terrell grossly intact. III/IV/: Versions intact without nystagmus, no gaze preference. VII: Facial expression symmetric VIII: Hearing intact to voice Motor: Strength was symmetric and antigravity throughout. Pronator drift was absent. There were no abnormal movements. Sensory: Sensation to light touch was intact. Coordination: Movements were not dysmetric Reflexes: Unable to assess over telemedicine Results & Data Vital Signs (Past 12 Hours) Vital Signs Pulse Pulse Resp BP BP Pulse Ox Pulse Ox 02/14/23 09:04 114 H 21 178/129 H 02/14/23 09:00 111 H 19 197/110 H 02/14/23 08:55 112 H 16 182/114 H 02/14/23 08:00 103 H 20 170/103 H 02/14/23 07:39 110 H 02/14/23 07:00 108 H 20 183/100 H 96 02/14/23 05:53 101 H 17 165/95 H 96 02/14/23 05:10 103 H 23 161/99 H 96 02/14/23 02:12 104 H 18 140/92 02/14/23 02:12 96 02/14/23 01:00 95 H 18 124/78 97 02/14/23 00:52 90 02/14/23 00:17 90 16 145/86 H 97 02/13/23 23:35 97 02/13/23 23:35 02/13/23 23:31 92 H 162/104 H 02/13/23 23:10 109 H 14 178/117 H 96 O2 Del Method 02/14/23 09:04 02/14/23 09:00 02/14/23 08:55 02/14/23 08:00 02/14/23 07:39 02/14/23 07:00 Room Air 02/14/23 05:53 Room Air 02/14/23 05:10 Room Air 02/14/23 02:12 02/14/23 02:12 02/14/23 01:00 02/14/23 00:52 02/14/23 00:17 02/13/23 23:35 Room Air 02/13/23 23:35 Room Air 02/13/23 23:31 02/13/23 23:10 Room Air Laboratory Results Abnormal lab results 02/13/23 02/13/23 02/13/23 Range/Units 21:22 21:23 21:26 Hct (42.0-52.0) % RDW Std Deviation 36.2 L (36.4-46.3) fL MPV 9.0 L (9.4-12.4) fL Lymph # (Auto) (1.20-3.40) K/uL Chloride (98-107) mmol/L Glucose 140 H (70-99(Fasting)) mg/dl POC Glucose 127 H (70-99) mg/dl POC Glucose (other) 144 H (70-99) mg/dl POC Ioniz Calcium Jere 1.08 L (1.12-1.32) mmol/l Triglycerides 160 H (0-150) mg/dl VLDL Cholesterol, Calc 32 H (0-30) mg/dl 02/14/23 Range/Units 05:45 Hct 41.4 L (42.0-52.0) % RDW Std Deviation (36.4-46.3) fL MPV 8.7 L (9.4-12.4) fL Lymph # (Auto) 0.70 L (1.20-3.40) K/uL Chloride 108 H (98-107) mmol/L Glucose 122 H (70-99(Fasting)) mg/dl POC Glucose (70-99) mg/dl POC Glucose (other) (70-99) mg/dl POC Ioniz Calcium Jere (1.12-1.32) mmol/l Triglycerides (0-150) mg/dl VLDL Cholesterol, Calc (0-30) mg/dl Diagnostic Findings Chest X-Ray 02/13/23 21:11 XR chest 1V portable HISTORY: 73 years-old Male stroke alert acute strokelike symptoms COMPARISON: Chest CT 07/19/2018 TECHNIQUE: AP view of the chest FINDINGS: Cardiomediastinal and hilar silhouettes are unchanged. Mild chronic interstitial coarsening with mild bibasilar atelectasis. No pneumothorax, pleural effusion or overt pulmonary edema. Degenerative changes of the shoulders and spine. IMPRESSION: No acute process. ACT 112: Negative or not required by law. The above report was generated using voice recognition software. It may contain grammatical, syntax or spelling errors. Electronically signed by: Aly Phelan M.D. 02/14/2023 7:[address] 02/13/23 21:11 CR Exam(s): CT HEAD Without Contrast EXAM: CT Head Without Intravenous Contrast CLINICAL HISTORY: Reason for exam: Neuro deficit, acute, stroke suspected. TECHNIQUE: Axial computed tomography images of the head/brain without intravenous contrast. CTDI is 37.22 mGy and DLP is 547.75 mGy-cm. Automated exposure control was utilized for the study. A dose lowering technique was utilized adhering to the principles of ALARA. COMPARISON: 07/19/2018. FINDINGS: Brain: No acute stroke. No hemorrhage. No abnormal extra-axial fluid collection. No significant white matter disease. Ventricles: No hydrocephalus. No midline shift. Bones/joints: Unremarkable. No acute fracture. Soft tissues: Unremarkable. Sinuses: Unremarkable as visualized. No acute sinusitis. IMPRESSION: No acute abnormality. Communications: Call Doctor Stroke Electronically signed by: Keaton Alarcon M.D. 02/13/23 21:35 PM Head CTA 02/13/23 21:15 CR Exam(s): CTA HEAD With Contrast IV Amt: 118ML OPTIRAY 320 EXAM: CT Angiography Head With Intravenous Contrast CLINICAL HISTORY: Reason for exam: stroke alert. TECHNIQUE: Axial computed tomographic angiography images of the head with intravenous contrast. CTDI is 31 mGy and DLP is 468.69 mGy-cm. Automated exposure control was utilized for the study. A dose lowering technique was utilized adhering to the principles of ALARA. MIP reconstructed images were created and reviewed. CONTRAST: Patient received 118ML OPTIRAY 320 of IV contrast COMPARISON: CT head without contrast, 02/13/23 FINDINGS: Right internal carotid artery: No acute findings. Intracranial segment is patent with no significant stenosis. No aneurysm. Right anterior cerebral artery: Unremarkable. No occlusion or significant stenosis. No aneurysm. Right middle cerebral artery: Unremarkable. No occlusion or significant stenosis. No aneurysm. Right posterior cerebral artery: Unremarkable. No occlusion or significant stenosis. No aneurysm. Right vertebral artery: Unremarkable as visualized. Left internal carotid artery: No acute findings. Intracranial segment is patent with no significant stenosis. No aneurysm. Left anterior cerebral artery: Unremarkable. No occlusion or significant stenosis. No aneurysm. Left middle cerebral artery: Unremarkable. No occlusion or significant stenosis. No aneurysm. Left posterior cerebral artery: Unremarkable. No occlusion or significant stenosis. No aneurysm. Left vertebral artery: Unremarkable as visualized. Basilar artery: Unremarkable. No occlusion or significant stenosis. No aneurysm. IMPRESSION: Patent intracranial circulation. Communications: Call Doctor Stroke Electronically signed by: Willam Barba M.D. 02/13/23 21:47 PM Neck CTA 02/13/23 21:15 CR Exam(s): CTA NECK With Contrast IV Amt: 118ml optiray 320 EXAM: CT Angiography Neck With Intravenous Contrast CLINICAL HISTORY: Reason for exam: stroke alert. TECHNIQUE: Routine carotid CT angiography protocol was performed with intravenous contrast. NASCET criteria using the distal ICAs for comparison were used for evaluation of stenoses. CTDI is 31 mGy and DLP is 468.69 mGy-cm. Automated exposure control was utilized for the study. A dose lowering technique was utilized adhering to the principles of ALARA. MIP reconstructed images were created and reviewed. CONTRAST: Patient received 118ml optiray 320 of IV contrast COMPARISON: None. FINDINGS: VASCULATURE: Right common carotid artery: Unremarkable. No occlusion or significant stenosis. No dissection. Right internal carotid artery: Unremarkable. Extracranial segment is patent with no occlusion or significant stenosis. No dissection. Right external carotid artery: Unremarkable. No occlusion. Right vertebral artery: Unremarkable. No occlusion or significant stenosis. No dissection. Left common carotid artery: Unremarkable. No occlusion or significant stenosis. No dissection. Left internal carotid artery: Unremarkable. Extracranial segment is patent with no occlusion or significant stenosis. No dissection. Left external carotid artery: Unremarkable. No occlusion. Left vertebral artery: Unremarkable. No occlusion or significant stenosis. No dissection. Aorta: Conventional aortic arch branch anatomy. NECK: Bones/joints: Unremarkable. No acute fracture. Soft tissues: Unremarkable. Thyroid: Subcentimeter thyroid nodules. No follow-up indicated due to small size. Lung apices: Clear lung terrell. CAROTID STENOSIS REFERENCE USING NASCET CRITERIA: % ICA stenosis = (1 - narrowest ICA diameter/diameter of distal cervical ICA) x 100. Mild - <50% stenosis. Moderate - 50-69% stenosis. Severe - 70-94% stenosis. Near occlusion - 95-99% stenosis. Occluded - 100% stenosis. IMPRESSION: No dissection, hemodynamically significant stenosis, or occlusion. Communications: Call Doctor Stroke Electronically signed by: Willam Barba M.D. 02/13/23 21:48 PM Brain MRI 02/14/23 02:12 MR brain wo/w con HISTORY: 73 years-old Male stroke like symptoms acute strokelike symptoms COMPARISON: Head CT February 13, 2023, brain MRI 05/15/2015 TECHNIQUE: Multiplanar multisequence MRI of the brain was obtained both with and without the use of IV contrast. FINDINGS: No restricted diffusion to suggest acute or subacute infarct. Midline structures are unremarkable. Partially empty sella. Degenerative changes of the imaged cervical spine. There is no acute intracranial hemorrhage, midline shift, abno rmal extra-axial collection, hydrocephalus or intra-axial mass. No pathologic blooming artifact on the T2*series. Involutional changes with a few punctate foci of T2/FLAIR prolongation, likely of no clinical significance. The cerebral venous sinuses and major arterial flow voids appear patent. Skull, orbits and soft tissues are unremarkable. Right greater than left mastoid effusions. Mild mucosal thickening of the left maxillary sinus. No abnormal enhancement. IMPRESSION: 1. No acute intracranial abnormality. 2. No acute or subacute infarct. 3. No abnormal enhancement. ACT 112: Negative or not required by law. The above report was generated using voice recognition software. It may contain grammatical, syntax or spelling errors. Electronically signed by: Aly Phelan M.D. 02/14/2023 7:02 AM
--- NOTE | 2023-02-14 11:31 | Electrocardiogram Report ---
Test Reason : Blood Pressure : / mmHG Vent. Rate : 117 BPM Atrial Rate : 117 BPM P-R Int : 140 ms QRS Dur : 082 ms QT Int : 326 ms P-R-T Axes : 059 072 057 degrees QTc Int : 454 ms Sinus tachycardia Otherwise normal ECG No previous ECGs available Confirmed by Bebeto Grissom ([id number]) on 02/14/2023 11:31:33 AM Referred By: REFERRED SELF Confirmed By:Bebeto Grissom
--- OUTSIDE RECORDS SUMMARY | 2023-02-14 12:45 | External Medical Summary | Summary of Care ---
Author Name Unknown Organization [facility] Address [address] [place] [address] Phone [phone] Care Team Providers Care Cable Armorer Name Role Phone London Bradley DO Primary Care Provider [phone] Reason for Visit * Reason Comments New Med Request Encounter Details Date Type Department Care Team (Late st Contact Info) Description 01/13/[facility] [address] [place] [address] London Bradley DO [facility] [place] [address] Dyslipidemia, goal LDL below 100 Allergies Active Allergy Reactions Criticality Noted Date Comments Bee Venom 05/19/2013 Anaphylactic reaction documented as of this encounter (statuses as of 01/14/2023) Medications Medication Sig Dispensed Refills Start Date End Date Status EPIPEN 2-GERALD 0.3 MG/0.3ML IJ DEVIIndications:B ee sting allergy 1 TIME ONLY- for bee sting allergy 1 Device 3 05/19/2013 Active Coenzyme Q10 (COQ10) 200 MG CAPS Take by mouth. 0 Active acetaminophen (TYLENOL) 500 MG Tablet 0 07/21/2018 Active Vitamin D 125 MCG (5000 UT) Oral Capsule Take by mouth . 0 Active One-A-Day Mens Oral Tablet Take by mouth 1 Tablet in the morning. 0 Active Cyclobenzaprine HCl 5 MG Oral Tablet (Flexeril)Indicat ions:Chronic bilateral low back pain without sciatica Take by mouth 1 Tablet 2 times a day as needed for Muscle spasms. 30 Tablet 5 05/21/2021 Active Sildenafil Citrate 50 MG Oral TabletIndications :Vasculogenic erectile dysfunction, unspecified vasculogenic erectile dysfunction type take 1 tablet by mouth daily if needed for ERECTILE DYSFUNCTION 10 Tablet 5 07/11/2022 Active Lisinopril 5 MG Oral Tablet (Prinivil)Indicat ions:HTN, goal below 140/90 TAKE 1 TABLET DAILY 90 Tablet 3 08/07/2022 Active Metoprolol Succinate ER 25 MG Oral Tablet Extended Release 24 Hour (toPROL XL)Indications:Hy pertension goal BP (blood pressure) < 140/80 TAKE 1 TABLET DAILY EVERY NIGHT FOR BLOOD PRESSURE 90 Tablet 3 11/19/2022 Active Rosuvastatin Calcium 20 MG Oral Tablet (Crestor)Indicati ons:Dyslipidemia, goal LDL below 100 Take 1 Tablet by mouth daily. 90 Tablet 3 01/14/2023 Active Rosuvastatin Calcium 20 MG Oral Tablet (Crestor)Indicati ons:Dyslipidemia, goal LDL below 100 Take by mouth 1 Tablet in the morning. 90 Tablet 3 06/06/2021 3 Discontinued documented as of this encounter (statuses as of 01/14/2023) Active Problems Problem Noted Date Diagnosed Date Chronic bilateral low back pain with bilateral s ciatica 05/22/2022 History of hip fracture 09/27/2019 Left inguinal hernia 09/27/2019 Hx of atypical nevus 04/01/2019 Gastroesophageal reflux disease without esophagi tis 07/01/2018 HTN, goal below 140/90 07/24/2015 Overview: Per HTN Protocol Hx of basal cell carcinoma 11/28/2014 Overview: L midback 11/2013 Dyslipidemia, goal LDL below 100 06/21/2013 Family history of cardiovascular disease 014 Overview: Father and brother Family history of prostate cancer 05/19/2013 Overview: Father- onset age 80 ADVANCE DIRECTIVE INFORMATION 06/16/2006 Overview: Yes, Patient instructed to provide copy of advance directive for provider to review and to be scanned into Electronic Medical Record documented as of this encounter (statuses as of 01/14/2023) Resolved Problems Problem Noted Date Diagnosed Date Resolved Date Closed fracture of right acetabulum 08/17/2018 09/27/2019 Closed right hip fracture, initial encounter 9 09/27/2019 Hypertension goal BP (blood pressure) < 140/80 06/21/2013 07/27/2015 Overview: Per HTN Protocol HTN, goal below 140/90 06/22 documented as of this encounter (statuses as of 01/14/2023) Immunizations Name Administration Dates Next Due COVID-19 mRNA, LNP-s, No Pre serve, 2-Dose Series (Moderna) 04/14/2020,03/17/2020 COVID-19, mRNA, LNP-s, PF, B ooster, 100mcg/0.5mg (Moderna) 12/09/2020 TDAP (age 10 and older)(Boostrix) 05/19/2013 documented as of this encounter Social History Tobacco Use Types Packs/Day Years Used Date Smoking Tobacco: Never Smokeless Tobacco: Never Alcohol Use Standard Drinks/Week Comments Yes 1.7 (1 standard drink = 0.6 oz p ure alcohol) two beers nightly PHQ-2 Answer Date Recorded PHQ-2 Score 0 09/27/2019 Sex and Gender Information Value Date Recorded Sex Assigned at Not on file Gender Identity Not on file Sexual Orientation Not on file Job Start Date Occupation Industry Not on file Not on file Not on file documented as of this encounter Miscellaneous Notes * Telephone Encounter - April Kirkland RPh - 01/14/2023 3:11 PM EST Signed Prescriptions: Disp Refills Rosuvastatin Calcium 20 MG Oral Tablet (Cr*90 Tab*3 Sig: Take 1 Tablet by mouth daily.Authorizing Provider: LONDON BRADLEY User: APRIL KIRKLAND-- documented in this encounter Plan of Treatment Upcoming Encounters Date Type Department Care Team (Late st Contact Info) Description 05/26/2023 9:20 AM EDT Office Visit Family Practice [facility] [address] [facility] [place], [place] [address] London Bradley DO [address] [facility] [place] [address] 06/02/2023 11:15 AM EDT Office Visit Dermatology [facility] [place] [address] [facility] [place] [address] Franco Patel MD [address] [facility] [place] [address] Health Maintenance Due Date Last Done Comments Colonoscopy 01/31/1997 Fecal Occult Blood Test 01/31/1997 Sigmoidoscopy 01/31/1997 Zoster Vaccines (1 of 2) 01/31/2002 Pneumococcal Vaccine: 65+ Years (1 - PCV) 01/31/2017 Depression Screening 09/26/2020 09/27/2019 *BASELINE EKG FOR HTN 02/13/2021 COVID-19 Vaccine ( season) 2022 12/09/2020, 04/14/2020, 03/17/2020 Influenza Vaccine (FLU shot) (#1) 2022 DTaP,Tdap,and Td Vaccines (2 - Td or Tdap) 05/20/2023 05/19/2013 GFR 05/22/2023 05/21/2022, 05/12, 03/24/2020, Additional history exists Cologuard 06/05/2024 06/05/2021, 05/11, 04/16/2018 Colorectal Cancer Screening 06/05/2024 Albumin/Creatinine Ratio 05/21/2025 05/21/2022 Lipid Panel 05/22/2027 05/21/2022, 05/12, 03/24/2020, Additional history exists GARDASIL-HPV IMMUNIZATION SERIES Aged Out No longer eligible based on patient's age to complete this topic Hepatitis B Aged Out No longer eligi ble based on patient's age to complete this topic MENINGOCOCCAL (MENACTRA/MENVEO) Aged Out No longer eligible based on patient's age to complete this topic documented as of this encounter Medical Devices Not on filedocumented as of this encounter Visit Diagnoses Diagnosis Dyslipidemia, goal LDL below 100 Other and unspecified hyperlipidemia documented in this encounter Care Teams Cable Armorer Relationship Specialty Start Date End Date London Bradley DO [address] [place] [address] PCP - General Family Medicine 02/17/18 documented as of this encounter
--- OUTSIDE RECORDS SUMMARY | 2023-02-14 12:45 | External Medical Summary | Summary of Care ---
Author Name Unknown Organization [facility] Address [address] [place] [address] Phone [phone] Care Team Providers Care Online Affiliate Marketing Manager Name Role Phone London Bradley DO Primary Care Provider [phone] Reason for Visit * Reason Comments New Med Request Encounter Details Date Type Department Care Team (Late st Contact Info) Description [facility] [place] [address] London Bradley DO 200 [facility] [place] [address] Vasculogenic erectile dysfunction, unspecified vasculogenic erectile dysfunction type Allergies Active Allergy Reactions Criticality Noted Date Comments Bee Venom 05/19/2013 Anaphylactic reaction documented as of this encounter (statuses as of 01/28/2023) Medications Medication Sig Dispensed Refills Start Date [...] Muscle spasms. 30 Tablet 5 05/21/2021 Active Lisinopril 5 MG Oral Tablet (Prinivil)Indicat [...] mouth daily. 90 Tablet 3 01/14/2023 Active Sildenafil Citrate 50 MG Oral TabletIndications :Vasculogenic erectile dysfunction, unspecified vasculogenic erectile dysfunction type take 1 tablet by mouth daily if needed for ERECTILE DYSFUNCTION 10 Tablet 5 01/28/2023 Active Sildenafil Citrate 50 MG Oral TabletIndications :Vasculogenic erectile dysfunction, unspecified vasculogenic erectile dysfunction type take 1 tablet by mouth daily if needed for ERECTILE DYSFUNCTION 10 Tablet 5 07/11/2022 Discontinued documented as of this encounter (statuses as of 01/28/2023) Active Problems Problem Noted Date Diagnosed Date [...] as of this encounter (statuses as of 01/28/2023) Resolved Problems Problem Noted Date Diagnosed Date Resolved Date Closed fracture of right acetabulum 08/17/2018 09/27/2019 Closed right hip fracture, initial encounter 9 09/27/2019 Hypertension goal BP (blood pressure) < 140/80 06/21/2013 07/27/2015 Overview: Per HTN Protocol HTN, goal below 140/90 06/22 documented as of this encounter (statuses as of 01/28/2023) Immunizations Name Administration Dates Next Due COVID-19 [...] encounter Miscellaneous Notes * Telephone Encounter - Solomon Cruz RPh - 01/28/2023 11:49 AM ESTSigned Prescriptions: Disp Refills Sildenafil Citrate 50 MG Oral Tablet 10 Tab*5 Sig: take 1 tabletby mouth daily if needed for ERECTILE DYSFUNCTIONAuthorizing Provider: LONDON BRADLEY User: SOLOMON CRUZ documented in this encounter Plan of Treatment Upcoming Encounters Date Type Department Care Team (Late st Contact Info) Description 05/26/2023 9:20 AM EDT Office Visit Family Practice [facility] [address] [facility] [place], [place] [address] London Bradley DO [address] [facility] [place] [address] 06/02/2023 11:15 AM EDT Office Visit Dermatology [facility] [address] [facility] [place] [address] Franco Patel MD [address] [facility] [place] [address] Health Maintenance Due Date Last Done Comments [...] as of this encounter Visit Diagnoses Diagnosis Vasculogenic erectile dysfunction, unspecified vasculogenic erectile dysfunction type documented in this encounter Care Teams Online Affiliate Marketing Manager Relationship Specialty Start Date End Date London Bradley DO [address] [place] [address] PCP - General Family Medicine 02/17/18 documented as of this encounter
--- OUTSIDE RECORDS SUMMARY | 2023-02-14 12:45 | External Medical Summary | Summary of Care ---
Author Name Unknown Organization [facility] Address [address] [place] [address] Phone [phone] Care Team Providers Care C 40A Crew Chief Name Role Phone London Bradley DO Primary Care Provider [phone] Reason for Visit * Reason Comments eRx-Medication Refill Encounter Details Date Type Department Care Team Description [facility] [address] [place] [address] London Bradley DO [address] [facility] [place] [address] Hypertension goal BP (blood pressure) < 140/80 Allergies Active Allergy Reactions Severity Noted Date Comments Bee Venom 05/19/2013 Anaphylactic reaction documented as of this encounter (statuses as of 11/19/2022) Medications Medication Sig Dispensed Refills Start Date [...] Muscle spasms. 30 Tablet 5 05/21/2021 Active Rosuvastatin Calcium 20 MG Oral Tablet (Crestor)Indicati ons:Dyslipidemia, goal LDL below 100 Take by mouth 1 Tablet in the morning. 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 05/22/2022 History of hip fracture 09/27/2019 Left inguinal hernia 09/27/2019 Hx of atypical nevus 04/01/2019 Gastroesophageal reflux disease without esophagitis 07/01/2018 HTN, goal below 140/90 07/24/2015 Overview: Per HTN Protocol Hx of basal cell carcinoma 11/28/2014 Overview: L midback 11/2013 Dyslipidemia, goal LDL below 100 014 Family history of cardiovascular disease 05/19/2013 Overview: Father and brother Family history of prostate cancer 2013 Overview: Father- onset age 80 ADVANCE DIRECTIVE INFORMATION 06/16/2006 Overview: Yes, Patient instructed to provide copy of advance directive for provider to review and to be scanned into Electronic Medical Record documented as of this encounter (statuses as of 11/19/2022) Resolved Problems Problem Noted Date Resolved Date Closed fracture of right acetabulum 08/17/2018 09/27/2019 Closed right hip fracture, initial encounter 09/201809/27/2019 Hypertension goal BP (blood pressure) < 140/80 0 06/21/2013 07/27/2015 Overview: Per HTN Protocol HTN, goal below 140/90 9 documented as of this encounter (statuses as of 11/19/2022) Immunizations Name Administration Dates Next Due COVID-19 [...] oz p ure alcohol) two beers nightly Sex Assigned at Date Recorded Not on file Job Start Date Occupation Industry Not on file Not on file Not on file documented as of this encounter Miscellaneous Notes * Telephone Encounter - Keaton Norman RPh - 11/19/2022 2:57 AM EDTSigned Prescriptions: Disp Refills Metoprolol Succinate ER 25 MG Oral Tablet *90 Tab*3 Sig: TAKE 1 TABLET DAILY EVERY NIGHT FOR BLOOD PRESSUREAuthorizing Provider: LONDON BRADLEY User: KEATON NORMAN documented in this encounter Plan of Treatment Upcoming Encounters Date Type Specialty Care Team Description 05/26/2023 Office Visit Family Medicine London Bradley, [address] [facility], [place] [address] 05/30/2023 Office Visit Dermatology Chasity Ferreira MD [address] [place] [address] Health Maintenance Due Date Last Done Comments [...] as of this encounter Visit Diagnoses Diagnosis Hypertension goal BP (blood pressure) < 140/80 Unspecified essential hypertension documented in this encounter Care Teams C 40A Crew Chief Relationship Specialty Start Date End Date London Bradley, [address] [place] [id number] PCP - General Family Medicine 02/17/18 documented as of this encounter
--- NOTE | 2023-02-14 13:19 | Discharge Summary ---
Discharge Summary Date of Service February 14, 2023 Notes For Next Care Provider Medication Changes From Visit None Admission HPI Per Admitting Provider 73-year-old male with past med history significant for hyperlipidemia, hypertension, GERD, chronic bilateral low back pain, presents with strokelike symptoms. Around 7:30 PM patient seemed lost his memory, was asking same questions and was brought in and stroke alert was called. Initial workup with CT head CTA head and neck are unremarkable. And patient currently alert and awake and oriented. He does not remember coming to the hospital. states 7 years ago he had a similar episode of transient global amnesia at the time it lasted for 24 hours. [facility] stroke neurology recommended EEG, MRI. Currently resting comfortably and hemodynamic stable. Denies any headache. No blurred visions or double vision. No earache. No runny nose. Having lingering cough. No difficulty swallowing. No chest pain. No shortness of breath. No abdominal pain. Normal bowel movements. Seems micturating a lot today. Denies any burning micturition. Ambulating okay to the bathroom in the ER. Past medical history. As mentioned above Past surgical history. [place] tooth removal. Social history. . No smoking. Alcohol 2 beers nightly. No drug use. Family history. Father had prostate cancer. Heart disorder. Hypertension. Mother had diabetes. Hypertension. Brother had hypertension. Brother had CAD s/p stenting Admission Exam Per Admitting Provider General-Not in distress Head- atraumatic Eyes- PERRL, EOMI. ENT- oropharynx clear Neck- supple, no JVD. Lungs- clear to auscultation no wheezing or crackles. Heart- regular rhythm; no murmur, no gallop. Abdomen- normal bowel sounds, soft, nontender, no distension. Extremities- no pretibial edema, no erythema seen. Neuro- alert, oriented x 3; PERRL, EOMI; no facial palsy; no dysarthria; motor 5/5 bilaterally;coordination of movements normal, no pronator drift,sensations intact, position sense intact. Skin- warm & dry Principal Dx & Hospital Course #1 = Principal Diagnosis (1) Stroke-like symptoms: Mr Cueto is a 73-year-old male with past med history significant for hyp erlipidemia, hypertension, GERD, chronic bilateral low back pain, presents with strokelike symptoms. Around 7:30 PM patient seemed lost his memory, was asking same questions and was brought in and stroke alert was called. Initial workup with CT head CTA head and neck are unremarkable. And patient currently alert and awake and oriented. He does not remember coming to the hospital. states 7 years ago he had a similar episode of transient global amnesia at the time it lasted for 24 hours. [place] [facility] stroke neurology recommended EEG, MRI. Currently resting comfortably and hemodynamic stable. Denies any headache. No blurred visions or double vision. No earache. No runny nose. Having lingering cough. No difficulty swallowing. No chest pain. No shortness of breath. No abdominal pain. Normal bowel movements. Seems micturating a lot today. Denies any burning micturition. Ambulating okay to the bathroom in the ER. 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 He notes using epoxy glue briefly as possible toxic fume exposure. Otherwise, he is unsure. He reports, and confirms, pressures at home are in 120s and yesterday was "out of character" as he missed his meds in the morning. Neurology reviewed EEG, MRI and felt that TGA possible insetting of hy pertension, though very rare. There is also possibility of psychogenic cause, however this would be diagnosis of exclusion, yet this seems to be the biggest thing reported--overwhelming stressors. We discussed a plan for blood pressure upon discharge, understanding that if his pressure, in the comfort of his home, remains elevated, he should take an additional lisinopril--with instructions to return to ED if sustaining over 180 and symptoms returns. PCP follow up established. Strokelike symptoms Possible transient global amnesia Possible hypertensive encephalopathy CT head, CTA head and neck unremarkable Neurology follow up in 03/2023 PCP follow up for close OP monitoring of BP and perhaps discussion of depression/anxiety Hypertension Continue home lisinopril and metoprolol succinate Hyperlipidemia On statin Patient discharged per request and family discussion. Discharge Exam Constitutional WD/WN, vitals as above Respiratory normal respiratory effort, lungs clear to auscultation Gastrointestinal (Abdomen) normal bowel sounds, soft, nontender, no hepatosplenomegaly Skin no rashes, warm and dry Neurologic anxious Updated Medication List Medication Instructions Recorded Confirmed Type lisinopril 5 mg tablet 5 mg PO DAILY 07/19/18 02/13/23 History metoprolol succinate 25 mg 25 mg PO DAILY 07/19/18 02/13/23 History tablet,extended release 24 hr (Toprol XL) rosuvastatin 20 mg tablet 10 mg PO DAILY 02/13/23 02/13/23 History Hospital Stay Data Consultations 02/13/23 23:01 ED Decision to Admit Stat 02/14/23 08:00 Consult Neurology Routine Diagnostic Imagining Performed 02/13/23 21:11 CT head/brain wo con Stat 02/13/23 21:15 CT angio head w con Stat CT angio neck with con Stat 02/14/23 02:12 MR brain wo/w con Urgent Pending Results Patient Have Any Pending Studies at Discharge: No Discharge Instructions Given to Patient (Per Discharging Provider) You were admitted for concerns of amnesia. You were evaluated due to concerns of stroke. MRI was negative for any masses or signs of stroke. Labs were negative for sign of infection or electrolyte metabolic disturbances. We talked at depth about significant stress, which can cause psychogenic amnesia; however, this is a diagnosis that requires ruling out other issues. That includes following up with your primary to ensure close blood pressure monitoring and consistent control of your blood pressure. As well as consider journalling, therefore as stressful/overwhelming events may compound, you can perhaps correlate future events to more or less stressful times in your day-to-day life. You have a neurology follow up and PCP follow up scheduled. Your blood pressure was notably elevated and marginally improved with your home medication. The discharge plan is to go home and if your top number is greater than 145 after on your blood pressure machine relaxing and "settling in" to please take another 5mg of lisinopril. Then in the morning if your blood pressure continues to not be the usual "120s" reported on your home regimen, please increase your lisinopril to 10mg in the morning. Please return to the ED if any symptoms return or pressure continues to increase and sustain greater than 185. You have a follow up for blood pressure monitoring on 02/21/2023. Total Time Total Time Spent Total Time Spent (In Minutes): 45
== END 2023-02-14 13:45 | disposition home or self-care (01) ==
LOC: ED 21:01 → INTOOBSV 02-14 00:23 → EDINP 02-14 00:23